=== PATIENT | male | born 1960 | race Two or more races ===

== ENCOUNTER → 2020-08-27 | Outpatient (CLI) | payer SELFPAY ==
--- NOTE | 2020-08-29 13:15 | RADIOLOGY REPORT (SQ) ---
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 RADIONUCLIDE AND DOSE: 11.4 mCi F18 FDG The route of agent administration: Intravenous FASTING BLOOD SUGAR: 100 mg/dl CONTRAST TYPE AND DOSE: No CT contrast given. TECHNIQUE: Blood glucose level was verified. Above dose of FDG was injected intravenously. 2-D seg mented attenuation correction images were obtained from the base of the skull to the midthighs. Nonc ontrast CT images were obtained for attenuation correction and fusion with emission images. CT image s were performed without oral or intravenous contrast and are not sensitive for parenchymal lesions. A series of overlapping emission PET images were obtained. Images reviewed and manipulated at [facility] [email or web address] work station by the radiologist. Images stored on PACS. LIMITATIONS: None. FINDINGS: HEAD AND NECK: There is abnormal uptake associated with a large lobulated mass in the righ t social work instructor space measuring 14-17 HU and approximately 3.6 x 5.7 cm AP by transverse diameter. Ther e is abnormal uptake 12.4 SUV within a nodule in the right parotid gland measuring just over 10 mm. There is abnormal uptake 16.5 SUV within right level 2 node measuring 2.9 x 2.5 SUV. CHEST: No areas of abnormal metabolic activity in the chest. ABDOMEN AND PELVIS: No areas of abnormal metabolic activity in the abdomen or pelvis. Expected physi ologic activity is present in the genitourinary system and bowel. PROXIMAL LOWER EXTREMITIES: No areas of abnormal metabolic activity in the soft tissues of the lower extremities. BONES: No abnormal metabolic activity in the visualized skeleton. ADDITIONAL CT FINDINGS: 4 mm non scratched at 4 mm part solid nodule right lower lobe image 106. 3 m m ground-glass nodule left upper lobe image 103. OTHER: Blood pool 1.4 SUV. Liver background 2.2 SUV. IMPRESSION: Right social work instructor space malignancy with satellite nodule in the right parotid gland and i psilateral level 2 lymphadenopathy. TECHNICAL DOCUMENTATION: JOB ID: [id number] [employer]- All Rights Reserved Reading location - IP/workstation name: [email or web address]-
== END ==
LOC: RAD 13:09
PROVIDERS: ATTEND Internal Medicine
DX: C07 Malignant neoplasm of parotid gland (principal)
CPT/HCPCS: 78815; A9552